=== PATIENT | female | born 1945 | race Caucasian/White ===

== ENCOUNTER 2018-05-16 15:13 | Emergency (ER) | payer SELFPAY ==
--- NOTE | 2018-05-16 16:01 | C.PDOC ---
History Of Present Illness 72 year old female presents to the ED for evaluation of a left arm injury s/p slip and fall today. Patient reports she was wearing slippers, fell forward with outstretched arms, fell on her knees and arms, now unable to move left shoulder. Denies LOC, head injuries, other injuries, and any other associated symptoms. Time Seen by Provider: 05/16/18 15:21 Chief Complaint (Nursing): Upper Extremity Problem/Injury History Per: Patient History/Exam Limitations: no limitations Onset/Duration Of Symptoms: Hrs Current Symptoms Are (Timing): Still Present Past Medical History Reviewed: Historical Data, Nursing Documentation, Vital Signs Vital Signs: Last Vital Signs Temp 97.9 F 05/16/18 15:23 Pulse 100 H 05/16/18 15:23 Resp 18 05/16/18 15:23 BP 191/93 H 05/16/18 15:23 Pulse Ox 97 05/16/18 15:23 - Medical History PMH: HTN Family History: States: Unknown Family Hx - Social History Hx Alcohol Use: No Hx Substance Use: No - Immunization History Hx Tetanus Toxoid Vaccination: No Hx Influenza Vaccination: No Hx Pneumococcal Vaccination: No Review Of Systems Constitutional: Negative for: Other (head injury. LOC.) Musculoskeletal: Positive for: Other (left arm injury.) Physical Exam - Physical Exam Appears: Well, Non-toxic Skin: Normal Color, Warm, Dry, Ecchymosis (left eyebrow), No Other ((-) contusion. (-) abrasions. ) Head: Normacephalic, Swelling (over left eyebrow) Eye(s): bilateral: Normal Inspection Oral Mucosa: Moist Neck: Normal ROM, Supple, No Other (tenderness.) Chest: Symmetrical, No Tenderness Cardiovascular: Rhythm Regular, No Murmur Respiratory: Normal Breath Sounds, No Rales, No Rhonchi, No Wheezing Gastrointestinal/Abdominal: Normal Exam, Soft, No Tenderness Extremity: Normal ROM (of fingers. ), Tenderness (to the left shoulder.), Capillary Refill (less than 2 seconds.), No Deformity, Other (left shoulder: holod deltoid. ) Pulses: Left Radial: Normal, Right Radial: Normal Neurological/Psych: Oriented x3, Normal Speech, Normal Motor, Normal Sensation, Normal Reflexes Gait: Steady ED Course And Treatment O2 Sat by Pulse Oximetry: 97 (RA) Pulse Ox Interpretation: Normal - Other Rad X-ray Knee X-Ray: Viewed By Me, Read By Radiologist Interpretation: FINDINGS: BONES: Right Knee: No acute fracture. Left Knee: No acute fracture. JOINTS: Right Knee: Total knee replacement. No evidence of prosthesis loosening. Left knee: Total knee replacement. No evidence of prosthesis loosening. SOFT TISSUES: Right Knee: Normal. Left Knee: Normal. JOINT EFFUSION: Right Knee: None. Left Knee: None. OTHER FINDINGS: None. IMPRESSION: Bilateral total knee replacement. No evidence of prosthesis loosen ing. No acute fracture. X-ray LT Shoulder X-Ray: Viewed By Me, Read By Radiologist Interpretation: FINDINGS: BONES: Anterior dislocation at left glenohumeral articulation with displaced fracture greater tuberosity. Likely comminuted. No definite glenoid fracture appreciated. JOINTS: Acromioclavicular articulation is unremarkable. Glenohumeral dislocation as above. SOFT TISSUES: Normal. OTHER FINDINGS: None. IMPRESSION: Anterior dislocation at left glenohumeral joint with displaced greater tuberosity fracture. Progress Note: Shoulder reduced using a modified milch manuver and position confirrmed with post reduction xray. Arm placed in a shoulder immobilizer. Reevaluation Time: 17:33 Reassessment Condition: Improved Orthopedic Time Performed: 16:43 Time Out: Side verified, Site verified, Patient ID confirmed Procedure: Joint reduction Location: Left (shoulder) Consent obtained: Emergent consent implied Performed by: Attending Physician Diagnosis: Fracture, Dislocation Type: Closed Location: Left, Anterior Joints: Glenohumeral Joint (reduced using a modified milch manuver) Capillary refill: Normal Distal Sensation: Normal Distal Motor Function: Normal Capillary Refill: Normal Distal Sensation: Normal Distal Motor Function: Normal Post-reduction Radiograph: Good Alignment Patient tolerated procedure: Well Medical Decision Making Medical Decision Making: Plan: --X-ray Knee --X-ray FT Shoulder --Morphine Disposition Counseled Patient/Family Regarding: Studies Performed, Diagnosis, Need For Followup, Rx Given - Disposition Referrals: Rodney Moya III, MD [Staff Provider] - Disposition: HOME/ ROUTINE Disposition Time: 17:33 Condition: IMPROVED Additional Instructions: Keep the shoulder immobilizer in place and do not allow her to lift her arm over her head. Prescriptions: Tramadol HCl [Ultram] 50 mg PO QID PRN #20 tablet PRN Reason: Pain, Moderate (4-7) Instructions: Shoulder Dislocation, Shoulder Fracture Forms: [employer] ([place]) - Clinical Impression Clinical Impression: Fracture dislocation of left shoulder joint - Scribe Statement The provider has reviewed the documentation as recorded by the Scribe (Donna Bravo) Provider Attestation: All medical record entries made by the Scribe were at my direction and personally dictated by me. I have reviewed the chart and agree that the record accurately reflects my personal performance of the history, physical exam, medical decision making, and the department course for this patient. I have also personally directed, reviewed, and agree with the discharge instructions and disposition.
[2018-05-16 16:11] VITALS: O2SAT 97
--- NOTE | 2018-05-16 16:21 | RAD ---
Date of service: 05/16/2018 PROCEDURE: Bilateral Knee Radiographs. HISTORY: fall, contusion COMPARISON: None. FINDINGS: BONES: Right Knee: No acute fracture Left Knee: No acute fracture JOINTS: Right Knee: Total knee replacement. No evidence of prosthesis loosening. Left knee: Total knee replacement. No evidence of prosthesis loosening. SOFT TISSUES: Right Knee: Normal. Left Knee: Normal. JOINT EFFUSION: Right Knee: None. Left Knee: None. OTHER FINDINGS: None. IMPRESSION: Bilateral total knee replacement. No evidence of prosthesis loosening. No acute fracture.
--- NOTE | 2018-05-16 16:22 | RAD ---
Date of service: 05/16/2018 PROCEDURE: Radiographs of the Left Shoulder HISTORY: R/O DISLOCATION COMPARISON: No prior. FINDINGS: BONES: Anterior dislocation at left glenohumeral articulation with displaced fracture greater tuberosity. Likely comminuted. No definite glenoid fracture appreciated. JOINTS: Acromioclavicular articulation is unremarkable. Glenohumeral dislocation as above. SOFT TISSUES: Normal. OTHER FINDINGS: None. IMPRESSION: Anterior dislocation at left glenohumeral joint with displaced greater tuberosity fracture.
[2018-05-16 17:51] VITALS: BP 169/98; PULSE 98; RESP 16; TEMP 97.6
--- NOTE | 2018-05-17 10:14 | RAD ---
Date of service: 05/16/2018 PROCEDURE: Radiographs of the Left Shoulder HISTORY: post reduction COMPARISON: 05/16/2018 at 1550 hr FINDINGS: BONES: Humeral head/greater tuberosity fracture-slightly displaced superiorly history noted. JOINTS: Prior anterior inferior humeral dislocation from the glenoid now reduced to normal anatomical alignment. Glenohumeral and acromioclavicular osteoarthritis. SOFT TISSUES: Normal. OTHER FINDINGS: None. IMPRESSION: Interval reduction of a prior anterior inferior left shoulder dislocation. Left humeral greater tuberosity [id number] it. Comments, consider CT left shoulder mapping for fracture fragments and positions.
== END 2018-05-16 17:48 | disposition home or self-care (01) ==
LOC: C.ER 15:13
DX: S42.252A Displaced fracture of greater tuberosity of left humerus, initial encounter for closed fracture (principal); W01.0XXA Fall on same level from slipping, tripping and stumbling without subsequent striking against object, initial encounter
CPT/HCPCS: 23665; 73030; 73562; 96372; 99285; J2270